=== PATIENT | female | born 1965 ===

== ENCOUNTER → 2018-10-07 06:00 | Outpatient (CLI) | payer OTHER ==
[~2018-10-07] VITALS: Ht 170.2 cm; Wt 86.2 kg
[~2018-10-07 06:00] MED LIST: APOTEX PO; ARIMIDEX PO; CLONAZEPAM1 M1 PO; FORTAMET1000 MG PO; GABAPENTIN800 MG PO; GLIPIZIDE ER10 MG PO; LANTUS SOL100 UNIT/1; MELOXICAM15 MG PO; VASOTEC20 M1 PO; ZOCOR20 MG PO
== END | disposition home or self-care (01) ==
LOC: EKG 06:00 → EDSTATUS 10-12 11:15 → SURH 10-12 11:15
DX: Z01.810 Encounter for preprocedural cardiovascular examination (principal); D37.4 Neoplasm of uncertain behavior of colon; D12.0 Benign neoplasm of cecum

== ENCOUNTER 2018-10-11 06:30 | Day surgery (SDC) | payer OTHER | END 2018-10-11 11:10 | disposition home or self-care (01) | LOC: AMB-ENDOS 06:30 | DX: D12.0 Benign neoplasm of cecum (principal) ==